=== PATIENT | female | born 1970 | race Caucasian/White ===

== ENCOUNTER 2017-11-22 22:45 | Inpatient (IN) ==
[2017-11-23] MEDS ORDERED: GI Cocktail 40 ML EACH PO ONE (01:08)
--- NOTE | 2017-11-23 01:42 | Internal Med History&Physical ---
Date of Encounter: 11/23/17 Time of Encounter: 01:35 Internal Medicine - H&P: HPI Chief complaint: abdominal cramping Admitted From: Hospital to Hospital Transfer Plans for Post Hospital Care: Home History of present illness: Ms. Rome is a 47 year old female who has a history of IBS-C, hypertension, recently diagnosed diabetes, asthma and anxiety disorder who is transferred here from [facility] she presented with a chief complaint of abdominal pain for 1 week. Patient states that since Saturday of last week she has been experiencing abdominal cramping predominantly epigastric associated with diarrhea of semisolid stool and nausea. She states that she has been unable to tolerate by mouth due to her symptoms and snacking on does bread alone. She states that she has become significantly weak thinned and due to the ongoing abdominal discomfort she decided to seek medical attention. He feels as though the pain was similar to when she had biliary colic. The color of her diarrheic depositions have varied from light yellow to brown to dark with a grainy consistency. She denies blood or mucus. She denies fever or chills, no chest pain, dyspnea or diaphoresis. She chronically has been on laxatives in the past in addition to linaclotide which she takes for her IBS-C but states that since the symptoms started she has not been taking them. She denies any acute ingestions or recent travels. Her last episode of diarrhea was yesterday earlier in the afternoon before she sought medical attention. At this time her chief complaint is abdominal cramping. The emergency room she was seen to have normal vital signs and lab work depicted bubble white count of 15.9, hemoglobin of 15.5, platelets of 274, sodium of 132, potassium of 3.4 and chloride of 95. Serum creatinine was 0.83 and be on a 5.5 with a lactic acid level of 1.1, lipase of 102. Her LFTs and serum troponin were within normal limits. Urinalysis was unremarkable. CT abdomen and pelvis was done with the impression of inflammatory changes surrounding the majority of the colon from the cecum through the proximal sigmoid colon which is consistent with an infectious or inflammatory colitis. At this time she states that her abdominal pain has received due to a narcotic medication she received and just wants to rest. She does not feel the urge to have diarrhea at this time. Past Med Surg Social Fam HX - Past Medical History Medical history: asthma, diabetes, hypertension Additional medical history: DDD,IBS, Reflux Psychiatric history: anxiety, depression, panic disorder, PTSD - Past Surgical History Surgical History: appendectomy, , cholecystectomy, hysterectomy - Social History Smoking Status: Current every day smoker Packs per day: 1 Pack Smokeless Tobacco Status: No Alcohol use: none Drug use: none - Family History Father Adopted: [place]: Abel Potter Age: 74 Family Member Ethnicity: Non- Living Status: Still Living Hx Family Cardiac Disorders: Yes Hx Family Cancer: Yes (Thyroid) Hx Family GI Disorders: No Hx Family Genitourinary Disorders: No Hx Family Endocrine Disorder: No Hx Family Musculoskeletal Disorders: No Hx Family Neuromuscular Disorders: No Hx Family Neurologic Disorders: No Hx Family HEENT Disorders: No Hx Family Autoimmune Disorders: No Hx Family Reproductive Disorders: No Hx Family Psychosocial Disorders: No Hx Family Medical Disorders: No Internal Medicine - H&P: Meds 3 Allergy/AdvReac Type Severity Reaction Status Date / Time lisinopril Allergy Swelling Verified 11/23/17 01:22 of Lip/Tongue/Throat acetaminophen [From Vicodin] AdvReac Swelling Verified 11/23/17 01:23 of the Eye hydrocodone [From Vicodin] AdvReac Swelling Verified 11/23/17 01:23 of the Eye All Systems PM: A 10-system review of systems was performed and is negative for pertinent findings except as documented above in the HPI. - Constitutional Vitals: Temp Pulse Resp BP Pulse Ox 97.8 F 68 19 97/68 93 11/23/17 01:05 11/23/17 01:05 11/23/17 01:05 11/23/17 01:05 11/23/17 01:05 Exam: Vitals: Reviewed General: Elderly white female sitting comfortably in bed in no acute distress Skin: Reduced skin turgor HEENT: Dry oral mucous membranes. No conjunctivae pallor. Neck: No lymphadenopathy. No JVD. Chest: Normal thoracic expansion. Normal breath sounds. Clear to auscultation. Heart: Normal S1 & S2; rhythmic. No rubs or murmurs. Abdomen: Non-distended, soft and nontender to palpation diffusely and predominantly in the epigastrium with no peritoneal reaction. Increased bowel sounds. Extremities: No clubbing, cyanosis or edema. No calf tenderness. Normal distal pulses. Neurological: Awake, alert and oriented to person, place and time. No focal deficits. Psych: Affect appropriate and coherent speech - Assessment and plan (1) Diarrhea Current Visit: Yes Status: Acute Assessment and plan: Unclear etiology as it potentially could be infectious however persisting over 1 week without resolution and without ingesting anything out of the ordinary or traveling to exotic places makes one equally consider a non-infectious etiology such as medication induced or a flare of IBS now having diarrhea. She has not taken any recent antibiotics or been hospitalized to be concerned for C.diff although there are also community acquired cases. The depositions she showed me via pictures on phone were not watery in consistency as would typically be seen however. -For now will place on IVF and empiric ciprofloxacin and metronidazole. -Obtain stool culture for assessment. Qualifiers: Diarrhea type: presumed infectious Qualified Code(s): R19.7 - Diarrhea, unspecified (2) Abdominal pain Current Visit: Yes Status: Acute Assessment and plan: Associated with the inflammatory signs of colitis. -Will treat with abx as above and provide PPI/GI cocktail for symptomatic relief. -Dicyclomine should be helpful for the cramping as well. Qualifiers: Abdominal location: generalized Qualified Code(s): R10.84 - Generalized abdominal pain (3) IBS (irritable bowel syndrome) Current Visit: Yes Status: Chronic Assessment and plan: Diagnosed "many years ago" as per the patient. She had a colonoscopy and endoscopy done last year which was grossly unremarkable except for a few polyps that were benign. -Place polyethylene glycol and linaclotide home medications on hold for now so as not to exacerbate her condition -She will need GI follow-up Qualifiers: Irritable bowel syndrome type: unspecified Qualified Code(s): K58.9 - Irritable bowel syndrome without diarrhea (4) Hypertension Current Visit: Yes Status: Chronic Assessment and plan: Resume home medication metoprolol and amlodipine however at a lower dose for now Qualifiers: Hypertension type: essential hypertension Qualified Code(s): I10 - Essential (primary) hypertension (5) Asthma Current Visit: Yes Status: Chronic Assessment and plan: Mild intermittent. We will place on albuterol when necessary Qualifiers: Asthma severity: mild Asthma persistence: intermittent Asthma complication type: uncomplicated Qualified Code(s): J45.20 - Mild intermittent asthma, uncomplicated (6) Diabetes Current Visit: Yes Status: Chronic Assessment and plan: Recent diagnosis and yet to start on therapy by her primary care physician. 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 We will check lamotrigine level just in case given the high dose she is on and resume medications accordingly. (8) DVT prophylaxis Current Visit: Yes Status: Acute Assessment and plan: Subcutaneous heparin ordered. - Time Spent With Patient Total time spent is greater than 50% in coordination of care (as documented) at patient's floor/unit and/or counseling patient: Greater than 35 minutes
[2017-11-23] MEDS ORDERED: Ondansetron ODT 4 MG TAB.RAPDIS SL PRN (01:44)
[2017-11-23] MEDS ORDERED: Albuterol 2.5 MG/3 ML NEBULIZER IH PRN (01:44)
[2017-11-23] MEDS: Ringers Solution, Lactated 1,000 ML IVC SCH ×4 (02:08→23:59)
[2017-11-23 04:42] LABS: Basophils % 0.2 %; Eosinophils # 0.2 K/mcL (0.0-0.6); Eosinophils % 1.2 %; Hematocrit 44.5 % (35.3-44.9); Hemoglobin 14.8 g/dL (11.5-15.4); Immature Granulocytes % 0.4 % (0-4); Lymphocytes # 2.3 K/mcL (0.6-4.6); Lymphocytes % 17.8 %; Mean Corpuscular HGB Conc 33.3 g/dL (31.6-35.5); Mean Corpuscular Volume 87.3 fL (83.0-100.0); Mean Platelet Volume 9.2 fL (9.4-12.4); Monocytes # 1.1 K/mcL (0.0-1.3); Monocytes % 8.3 %; Neutrophils # 9.4 K/mcL (1.6-8.9); Platelet Count 270 K/mcL (140-400); Red Cell Distribution Width 13.3 % (11.5-14.5); Segmented Neutrophils % 72.1 %
[2017-11-23 04:57] LABS: Alanine Aminotransferase 8 Units/L (7-52); Albumin 3.8 g/dL (3.5-5.7); Albumin/Globulin Ratio 1.4 (1.1-2.2); Alkaline Phosphatase 79 Units/L (34-104); Aspartate Amino Transferase 17 Units/L (13-39); BUN/Creatinine Ratio 7 (6-26); Bilirubin,Direct 0.1 mg/dL (0.0-0.2); Bilirubin,Indirect 0.4 mg/dL (0.0-1.2); Bilirubin,Total 0.5 mg/dL (0.3-1.0); Blood Urea Nitrogen 5 mg/dL (6-20); Calcium 8.8 mg/dL (8.6-10.3); Carbon Dioxide 23 mEq/L (23-29); Chloride 102 mEq/L (98-107); Globulin 2.7 g/dL (2.4-3.5); Glucose 79 mg/dL (70-105); Osmolality,Calculated 274 (280-300); Potassium 3.3 mEq/L (3.5-5.1); Sodium 134 mEq/L (136-145); Total Protein 6.5 g/dL (6.4-8.9); eGFR For Non-African Americans > 60 (> 60)
[2017-11-23] MEDS ORDERED: Potassium Chloride Elixir 20 MEQ/15 ML UDC PO ONE (05:31)
[2017-11-23] MEDS: *HR* Heparin 5,000 UNIT/ML VIAL SQ SCH ×3 (05:54→21:03)
[2017-11-23] MEDS: clonazePAM 0.5 MG TABLET PO PRN ×2 (07:21→21:08)
[2017-11-23] MEDS: MetroNIDAZOLE 500 MG/100 ML 500 MG/100 ML BAG IVPB SCH ×3 (07:22→23:59)
[2017-11-23] MEDS: lamoTRIgine 100 MG TABLET PO SCH ×2 (07:26→21:02)
[2017-11-23] MEDS: Fluticasone Propionate Nasal 50 MCG/SPRAY BOTTLE NS SCH (07:26)
[2017-11-23] MEDS: Pantoprazole 40 MG VIAL IVP SCH (07:27)
[2017-11-23] MEDS: BuPROPion XL (24 HR) 150 MG TABLET PO SCH (07:27)
[2017-11-23] MEDS ORDERED: amLODIPine 5 MG TABLET PO SCH ×2 (09:00)
[2017-11-23 10:12] LABS: Basophils % 0.2 %; Eosinophils # 0.1 K/mcL (0.0-0.6); Eosinophils % 1.1 %; Hematocrit 44.4 % (35.3-44.9); Hemoglobin 15.2 g/dL (11.5-15.4); Immature Granulocytes % 0.5 % (0-4); Mean Corpuscular HGB Conc 34.2 g/dL (31.6-35.5); Mean Corpuscular Hemoglobin 30.1 pg (28.0-33.3); Mean Corpuscular Volume 87.9 fL (83.0-100.0); Mean Platelet Volume 9.1 fL (9.4-12.4); Monocytes # 1.2 K/mcL (0.0-1.3); Monocytes % 8.9 %; Neutrophils # 9.6 K/mcL (1.6-8.9); Platelet Count 258 K/mcL (140-400); Red Blood Count 5.05 M/mcL (3.82-4.97); Red Cell Distribution Width 13.3 % (11.5-14.5); Segmented Neutrophils % 74.3 %
[2017-11-23 10:39] LABS: Potassium 4.6 mEq/L (3.5-5.1)
[2017-11-23 10:40] LABS: BUN/Creatinine Ratio 7 (6-26); Blood Urea Nitrogen 5 mg/dL (6-20); Calcium 8.8 mg/dL (8.6-10.3); Carbon Dioxide 24 mEq/L (23-29); Chloride 106 mEq/L (98-107); Glucose 80 mg/dL (70-105); Osmolality,Calculated 276 (280-300); Sodium 135 mEq/L (136-145); eGFR For Non-African Americans > 60 (> 60)
--- NOTE | 2017-11-23 10:55 | Internal Med Progress Note ---
Hospitalist Progress Note - Encounter Date of Encounter: 11/23/17 Time of Encounter: 10:53 - Subjective Interval History: Still complaining of upper abdominal pain especially epigastrium. He is still running watery diarrhea. Denies nausea vomiting. Review the lab. Patient denies fever chills headache dizziness chest pain shortness of breath urinary complaint - Exam Vitals: Temp Pulse Resp BP Pulse Ox 98.0 F 82 14 105/73 91 11/23/17 06:57 11/23/17 06:57 11/23/17 06:57 11/23/17 06:57 11/23/17 06:57 Exam: General appearance: No acute distress, A&O X 3 Head exam: Atraumatic Eye exam: EOMI, PERRLA Neck nontender, supple Respiratory exam: Clear to auscultation bilaterally Cardiovascular exam: Regular rate and rhythm, no systolic murmur Abdominal exam: Soft, epigastric tenderness, nondistended, positive bowel sounds Extremities exam: No calf tenderness, no pedal edema Present: Neurological exam: Alert, awake, oriented 3, CN II-XII intact, no focal deficits. No facial droop. Normal speech. Normal gait. - Assessment and Plan (1) Diarrhea Current Visit: Yes Status: Acute Assessment and Plan: Unclear etiology . Could be infectious versus IBS flareup. Supportive treatment IV fluid along with empiric antibiotics Cipro and Flagyl was started by admitting physician. The stool study ordered. (2) Abdominal pain Current Visit: Yes Status: Acute Assessment and Plan: Complaining of epigastric pain with tenderness. CT abdomen will be ordered. Will also order lipase. Continue PPI GI cocktail. (3) Hypertension Current Visit: Yes Status: Chronic Assessment and Plan: Low blood pressure at this time therefore hold amlodipine and a started low dose of beta juancarlos. Close monitoring of BP and if it is a still low then will hold the beta juancarlos as well. Continue IV fluid with a strict I&O's. (4) IBS (irritable bowel syndrome) Current Visit: Yes Status: Chronic Assessment and Plan: Diagnosed "many years ago" as per the patient. She had a colonoscopy and endoscopy done last year which was grossly unremarkable except for a few polyps that were benign. Will consult GI if needed. (5) Asthma Current Visit: Yes Status: Chronic Assessment and Plan: Mild intermittent. Stable. Albuterol as needed (6) Diabetes Current Visit: Yes Status: Chronic Assessment and Plan: Recent diagnosis and yet to start on therapy by her primary care physician. Blood glucose normal continue Accu-Chek. If blood glucoses stay within normal limit than patient will follow with his physician on OPD basis (7) Mood disorder Current Visit: Yes Status: Chronic Assessment and Plan: Stable. Resume home medicine (8) DVT prophylaxis Current Visit: Yes Status: Acute Assessment and Plan: Subcutaneous heparin ordered. - Time Spent with Patient Total time spent is greater than 50% in coordination of care (as documented) at patient's floor/unit and/or counseling patient: Internal Medicine: Result - Labs CBC & Chem 7: 11/23/17 09:48 11/23/17 09:48 Labs: Short CBC 11/23/17 11/23/17 Range/Units 03:58 09:48 WBC 13.1 H 13.0 H (4.3-11.1) K/mcL Hgb 14.8 15.2 (11.5-15.4) g/dL Hct 44.5 44.4 (35.3-44.9) % Plt Count 270 258 (140-400) K/mcL Neutrophils # 9.4 H 9.6 H (1.6-8.9) K/mcL BMP 11/23/17 11/23/17 03:58 09:48 Sodium 134 L 135 L Potassium 3.3 L 4.6 D Chloride 102 106 Carbon Dioxide 23 24 BUN 5 L 5 L Creatinine 0.73 0.71 Glucose 79 80 Calcium 8.8 8.8 Liver Function 11/23/17 Range/Units 03:58 Total Bilirubin 0.5 (0.3-1.0) mg/dL Direct Bilirubin 0.1 (0.0-0.2) mg/dL AST 17 (13-39) Units/L ALT 8 (7-52) Units/L Alkaline Phosphatase 79 (34-104) Units/L Albumin 3.8 (3.5-5.7) g/dL Consult Discharge Plan - Plan Referrals: Petrona Smith [Primary Care Provider] - (1) Diarrhea Qualifiers: Diarrhea type: presumed infectious Qualified Code(s): R19.7 - Diarrhea, unspecified (2) Abdominal pain Qualifiers: Abdominal location: generalized Qualified Code(s): R10.84 - Generalized abdominal pain (3) Hypertension Qualifiers: Hypertension type: essential hypertension Qualified Code(s): I10 - Essential (primary) hypertension (4) IBS (irritable bowel syndrome) Qualifiers: Irritable bowel syndrome type: unspecified Qualified Code(s): K58.9 - Irritable bowel syndrome without diarrhea (5) Asthma Qualifiers: Asthma severity: mild Asthma persistence: intermittent Asthma complication type: uncomplicated Qualified Code(s): J45.20 - Mild intermittent asthma, uncomplicated (6) Diabetes Qualifiers: Diabetes mellitus type: type 2 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
[2017-11-23] MEDS ORDERED: Isovue-370 500 ML INFUS..BTL IV ONE (11:02)
[2017-11-23] MEDS: Acetaminophen 325 MG TABLET PO PRN ×2 (11:08→22:06)
[2017-11-23 11:45] LABS: Amylase 11 Units/L (29-103); Lipase 27 Units/L (11-82)
[2017-11-23] MEDS: Lactobacillus 1 EACH CAP.SPRINK PO SCH ×2 (11:48→21:03)
[2017-11-23 12:43] LABS: Adenovirus F 40/41 PCR Not detected (Not detect); Astrovirus PCR Not detected (Not detect); C.difficile Toxin A/B by PCR See reflex test (Not detect); Campylobacter by PCR Not detected (Not detect); Cryptosporidium by PCR Not detected (Not detect); Cyclospora cayetanensis PCR Not detected (Not detect); E. coli O157 by PCR Not detected (Not detect); Entamoeba histolytica PCR Not detected (Not detect); Enteroaggregative E.coli(EAEC) Not detected (Not detect); Enteropathogenic E.coli(EPEC) Not detected (Not detect); Enterotoxigenic E.coli (ETEC) Not detected (Not detect); Giardia lamblia PCR Not detected (Not detect); Norovirus GI/GII PCR Not detected (Not detect); Plesiomonas shigelloides PCR Not detected (Not detect); Rotavirus A PCR Not detected (Not detect); Salmonella PCR Not detected (Not detect); Sapovirus PCR Not detected (Not detect); Shig/EnteroinvasiveE coli EIEC Not detected (Not detect); Shigalike tox-prod E coli STEC Not detected (Not detect); Vibrio PCR Not detected (Not detect); Vibrio cholerae PCR Not detected (Not detect); Yersinia enterocolitica PCR Not detected (Not detect)
--- NOTE | 2017-11-23 15:40 | Event Note ---
Date of Encounter: 11/23/17 Time of Encounter: 15:38 Stool is study positive for C. difficile and stool occult. Ciprofloxacin discontinued but continue IV Flagyl as patient had nausea but will change to oral once tolerate by mouth. Monitor CBC. CT abdomen ordered but not done yet.
[2017-11-23] MEDS: Beclomethasone 40mcg MDI IH SCH ×2 (16:22→20:11)
[2017-11-23] MEDS ORDERED: Isovue-370 500 ML INFUS..BTL PO ONE (16:29)
--- NOTE | 2017-11-23 20:22 | General Surgery Consult Note ---
Date of Encounter: 11/23/17 Time of Encounter: 20:19 Assessment and Plan (1) Clostridium difficile colitis Current Visit: Yes Status: Acute 47F with significant colitis 2/2 c. diff NPO IVF abx: flagyl, PO vanc; if patient worsens can give vanc enemas if patient does not improve despite management, then jose grijalva plan for surgery in that instance will cont to follow History of Present Illness Consult date: 11/23/17 Reason for consult: abdominal pain History of present illness: 47F h/o IBS who presents with one week of worsening abdominal pain. There was no identifiable causative factor. She does not report any recent antibiotic use. She does reports increasing reports of diarrhea. She had a recent test that was positive for C. diff. A CT scan was obtained which demonstrated thickening throughout the ascending and transverse colon up to the splenic flexure. Surgery was consulted for management recommendations. Past Med Surg Social Fam HX - Past Medical History Medical history: asthma, diabetes, hypertension Additional medical history: DDD,IBS, Reflux Psychiatric history: anxiety, depression, panic disorder, PTSD - Past Surgical History Surgical History: appendectomy, , cholecystectomy, hysterectomy - Social History Smoking Status: Current every day smoker Packs per day: 1 Pack Smokeless Tobacco Status: No Alcohol use: none Drug use: none - Family History Father Adopted: [place]: Abel Potter Age: 74 Family Member Ethnicity: Non- Living Status: Still Living Hx Family Cardiac Disorders: Yes Hx Family Cancer: Yes (Thyroid) Hx Family GI Disorders: No Hx Family Genitourinary Disorders: No Hx Family Endocrine Disorder: No Hx Family Musculoskeletal Disorders: No Hx Family Neuromuscular Disorders: No Hx Family Neurologic Disorders: No Hx Family HEENT Disorders: No Hx Family Autoimmune Disorders: No Hx Family Reproductive Disorders: No Hx Family Psychosocial Disorders: No Hx Family Medical Disorders: No Medications and Allergies Amlodipine Besylate 10 mg PO DAILY 11/23/17 [History] BuPROPion XL (24 HR) [Wellbutrin XL] 300 mg PO DAILY 11/23/17 [History] Ciclesonide [Alvesco] 1 puff IH BID 11/23/17 [History] Dicyclomine [Bentyl] 10 mg PO QID 11/23/17 [History] Linaclotide [Linzess] 290 mcg PO DAILY 11/23/17 [History] Metoprolol [Lopressor] 25 mg PO BID 11/23/17 [History] Mometasone Furoate [Nasonex] 1 - 2 spr NS DAILY 11/23/17 [History] Pravastatin Sodium [Pravachol] 40 mg PO HS 11/23/17 [History] Sertraline [Zoloft] 200 mg PO QAM 11/23/17 [History] clonazePAM [Klonopin] 0.5 mg PO BID 11/23/17 [History] lamoTRIgine [Lamictal] 200 mg PO BID 11/23/17 [History] raNITIdine HCl [Zantac] 150 mg PO BID 11/23/17 [History] 3 Allergy/AdvReac Type Severity Reaction Status Date / Time lisinopril Allergy Swelling Verified 11/23/17 10:51 of Lip/Tongue/Throat acetaminophen [From Vicodin] AdvReac Swelling Verified 11/23/17 10:51 of the Eye hydrocodone [From Vicodin] AdvReac Swelling Verified 11/23/17 10:51 of the Eye Review of Systems All systems PM: The remainder of the systems were reviewed and are negative General Surgery Exam Initial Vital Signs Temp Pulse Resp BP Pulse Ox 97.8 F 68 19 97/68 93 11/23/17 01:05 11/23/17 01:05 11/23/17 01:05 11/23/17 01:05 11/23/17 01:05 - General physical appearance no distress - Eyes normal ocular movement - ENT normocephalic - Neck no lymphadectomy - Respiratory normal expansion, normal respiratory effort - Cardiovascular Cardiovascular exam: Present: RRR - Abdomen Abdomen general surgery: Present: soft, distended (but compressible), tender ( non peritoneal; ) - Integumentary Integumentary general surgery: Present: warm and dry - Neurologic Present: CN 2-12 grossly intact - Musculoskeletal Present: normal posture - Psychiatric Psychiatric general surgery: Present: A&Ox3 Exam Initial Vital Signs Temp Pulse Resp BP Pulse Ox 97.8 F 68 19 97/68 93 11/23/17 01:05 11/23/17 01:05 11/23/17 01:05 11/23/17 01:05 11/23/17 01:05 Results - Labs 11/23/17 09:48 11/23/17 09:48 Abnormal lab results WBC 13.0 K/mcL (4.3-11.1) H 11/23/17 09:48 RBC 5.05 M/mcL (3.82-4.97) H 11/23/17 09:48 MPV 9.1 fL (9.4-12.4) L 11/23/17 09:48 Neutrophils # 9.6 K/mcL (1.6-8.9) H 11/23/17 09:48 Sodium 135 mEq/L (136-145) L 11/23/17 09:48 BUN 5 mg/dL (6-20) L 11/23/17 09:48 Calculated Osmolality 276 (280-300) L 11/23/17 09:48 Amylase 11 Units/L (29-103) L 11/23/17 09:48 Stool Occult Blood Positive (Negative) A 11/23/17 10:51 Stl C. diff Tox B Gene Positive (Negative) A 11/23/17 10:51 Stl C. diff Tox A/B PCR See reflex test (Not detect) A 11/23/17 10:51 Diabetes panel 11/23/17 11/23/17 Range/Units 03:58 09:48 Sodium 134 L 135 L (136-145) mEq/L Potassium 3.3 L 4.6 D (3.5-5.1) mEq/L Chloride 102 106 (98-107) mEq/L Carbon Dioxide 23 24 (23-29) mEq/L BUN 5 L 5 L (6-20) mg/dL Creatinine 0.73 0.71 (0.60-1.20) mg/dL Glucose 79 80 (70-105) mg/dL Calcium 8.8 8.8 (8.6-10.3) mg/dL AST 17 (13-39) Units/L ALT 8 (7-52) Units/L Alkaline Phosphatase 79 (34-104) Units/L Albumin 3.8 (3.5-5.7) g/dL Calcium panel 11/23/17 11/23/17 Range/Units 03:58 09:48 Calcium 8.8 8.8 (8.6-10.3) mg/dL Albumin 3.8 (3.5-5.7) g/dL Pituitary panel 11/23/17 11/23/17 Range/Units 03:58 09:48 Sodium 134 L 135 L (136-145) mEq/L Potassium 3.3 L 4.6 D (3.5-5.1) mEq/L Chloride 102 106 (98-107) mEq/L Carbon Dioxide 23 24 (23-29) mEq/L BUN 5 L 5 L (6-20) mg/dL Creatinine 0.73 0.71 (0.60-1.20) mg/dL Glucose 79 80 (70-105) mg/dL Calcium 8.8 8.8 (8.6-10.3) mg/dL Adrenal panel 11/23/17 11/23/17 Range/Units 03:58 09:48 Sodium 134 L 135 L (136-145) mEq/L Potassium 3.3 L 4.6 D (3.5-5.1) mEq/L Chloride 102 106 (98-107) mEq/L Carbon Dioxide 23 24 (23-29) mEq/L BUN 5 L 5 L (6-20) mg/dL Creatinine 0.73 0.71 (0.60-1.20) mg/dL Glucose 79 80 (70-105) mg/dL Calcium 8.8 8.8 (8.6-10.3) mg/dL Total Bilirubin 0.5 (0.3-1.0) mg/dL AST 17 (13-39) Units/L ALT 8 (7-52) Units/L Alkaline Phosphatase 79 (34-104) Units/L Albumin 3.8 (3.5-5.7) g/dL All other labs normal. - Imaging CT scan - abdomen: report reviewed, image reviewed CT scan - pelvis: report reviewed, image reviewed Consult Discharge Plan - Plan Referrals: Petrona Smith [Primary Care Provider] -
[2017-11-24] MEDS: *HR* Heparin 5,000 UNIT/ML VIAL SQ SCH ×3 (05:19→21:04)
[2017-11-24 05:25] LABS: Basophils % 0.3 %; Eosinophils # 0.2 K/mcL (0.0-0.6); Eosinophils % 1.4 %; Hematocrit 44.9 % (35.3-44.9); Hemoglobin 14.8 g/dL (11.5-15.4); Immature Granulocytes % 0.3 % (0-4); Lymphocytes # 3.4 K/mcL (0.6-4.6); Mean Corpuscular Hemoglobin 29.1 pg (28.0-33.3); Mean Corpuscular Volume 88.2 fL (83.0-100.0); Mean Platelet Volume 9.2 fL (9.4-12.4); Monocytes # 0.9 K/mcL (0.0-1.3); Monocytes % 7.4 %; Neutrophils # 7.2 K/mcL (1.6-8.9); Platelet Count 300 K/mcL (140-400); Red Blood Count 5.09 M/mcL (3.82-4.97); Red Cell Distribution Width 13.6 % (11.5-14.5); Segmented Neutrophils % 61.6 %
[2017-11-24 05:43] LABS: BUN/Creatinine Ratio 4 (6-26); Blood Urea Nitrogen 3 mg/dL (6-20); Carbon Dioxide 27 mEq/L (23-29); Chloride 107 mEq/L (98-107); Glucose 83 mg/dL (70-105); Osmolality,Calculated 284 (280-300); Potassium 3.5 mEq/L (3.5-5.1); Sodium 139 mEq/L (136-145); eGFR For Non-African Americans > 60 (> 60)
[2017-11-24] MEDS: MetroNIDAZOLE 500 MG/100 ML 500 MG/100 ML BAG IVPB SCH ×3 (07:15→23:00)
[2017-11-24] MEDS: Fluticasone Propionate Nasal 50 MCG/SPRAY BOTTLE NS SCH (07:17)
[2017-11-24] MEDS: lamoTRIgine 100 MG TABLET PO SCH ×2 (07:17→20:59)
[2017-11-24] MEDS: Lactobacillus 1 EACH CAP.SPRINK PO SCH ×2 (07:17→20:59)
[2017-11-24] MEDS: Pantoprazole 40 MG VIAL IVP SCH (07:18)
[2017-11-24] MEDS: clonazePAM 0.5 MG TABLET PO PRN (07:19)
[2017-11-24] MEDS: BuPROPion XL (24 HR) 150 MG TABLET PO SCH (07:19)
[2017-11-24] MEDS: Acetaminophen 325 MG TABLET PO PRN ×2 (07:20→16:24)
[2017-11-24] MEDS: Beclomethasone 40mcg MDI IH SCH ×2 (08:11→19:59)
[2017-11-24] MEDS: Vancomycin Oral Soln 125 MG/2.5 ML UDC PO SCH ×4 (08:21→21:00)
--- NOTE | 2017-11-24 11:21 | General Surgery Progress Note ---
Date of Encounter: 11/24/17 Time of Encounter: 11:19 - Assessment and Plan (1) Clostridium difficile colitis Current Visit: Yes Status: Acute 47F with significant colitis 2/2 c. diff; improved clinically NPO cont IVF cont flagyl, vanc activity as tolerated likely restart diet when pain is resolved and WBC wnl surgery will cont to follow Subjective Patient reports: no new complaints, feels better, pain is less Objective Vital Signs - Last 8 Hours Temp Pulse Resp BP Pulse Ox 11/24/17 11:13 97.9 F 64 16 106/70 95 11/24/17 07:19 97.9 F 74 16 114/75 92 11/24/17 04:30 97.8 F 79 16 115/80 92 Intake and Output 11/23/17 11/24/17 11/24/17 23:59 07:59 15:59 Intake Total 1940 / 1940 700 / 700 100 / 100 Output Total 0 / 0 Balance 1940 / 1940 700 / 700 100 / 100 Intake: IV Fluids 1100 / 1100 700 / 700 100 / 100 Lactated Ringers 1,000 ML @ 100 1000 / 1000 600 / 600 mls/hr IVC .Q10H [facility] Rx#: [id number] Flagyl Premix 500 MG/100 ML 500 100 / 100 100 / 100 100 / 100 mg In 100 ml @ 100 mls/hr IVPB Q8HR [facility] Rx#:[id number] Oral 840 / 840 0 / 0 0 / 0 Output: Urine 0 / 0 Other: Meal Dinner NPO BREAKFAST Stool Size Moderate Stool Consistency loose liquid Stool Color Brown # Voids 2 1 # Bowel Movements 1 Weight 73.1 kg Blood Glucose* 82 81 Patient Weight 11/24/17 23:59 Weight 73.1 kg - General physical appearance no distress - Cardiovascular Cardiovascular exam: Present: RRR - Abdomen Abdomen: Present: soft, distended (less distended than yesterday), tender - Neurologic CN 2-12 grossly intact - Labs 11/24/17 04:47 11/24/17 04:47 Diabetes panel 11/23/17 11/24/17 Range/Units 09:48 04:47 Sodium 135 L 139 (136-145) mEq/L Potassium 4.6 D 3.5 (3.5-5.1) mEq/L Chloride 106 107 (98-107) mEq/L Carbon Dioxide 24 27 (23-29) mEq/L BUN 5 L 3 L (6-20) mg/dL Creatinine 0.71 0.68 (0.60-1.20) mg/dL Glucose 80 83 (70-105) mg/dL Calcium 8.8 9.0 (8.6-10.3) mg/dL Calcium panel 11/23/17 11/24/17 Range/Units 09:48 04:47 Calcium 8.8 9.0 (8.6-10.3) mg/dL Pituitary panel 11/23/17 11/24/17 Range/Units 09:48 04:47 Sodium 135 L 139 (136-145) mEq/L Potassium 4.6 D 3.5 (3.5-5.1) mEq/L Chloride 106 107 (98-107) mEq/L Carbon Dioxide 24 27 (23-29) mEq/L BUN 5 L 3 L (6-20) mg/dL Creatinine 0.71 0.68 (0.60-1.20) mg/dL Glucose 80 83 (70-105) mg/dL Calcium 8.8 9.0 (8.6-10.3) mg/dL Adrenal panel 11/23/17 11/24/17 Range/Units 09:48 04:47 Sodium 135 L 139 (136-145) mEq/L Potassium 4.6 D 3.5 (3.5-5.1) mEq/L Chloride 106 107 (98-107) mEq/L Carbon Dioxide 24 27 (23-29) mEq/L BUN 5 L 3 L (6-20) mg/dL Creatinine 0.71 0.68 (0.60-1.20) mg/dL Glucose 80 83 (70-105) mg/dL Calcium 8.8 9.0 (8.6-10.3) mg/dL Consult Discharge Plan - Plan Referrals: Petrona Smith [Primary Care Provider] -
[2017-11-24] MEDS: Ringers Solution, Lactated 1,000 ML IVC SCH (11:32)
--- NOTE | 2017-11-24 11:38 | Internal Med Progress Note ---
Hospitalist Progress Note - Encounter Date of Encounter: 11/24/17 Time of Encounter: 08:30 - Subjective Interval History: is reporting that she is feeling muuch better but still has diarrhea. 3 episodes last night one episode ythis morning. denies abdominal pain, hematochezia or melena. is unsure of how she developed this infection. denies recent travel, sick contatcs, or Abx use lives alone. denies fever, chills, CP, SOB, palpitations - Exam Vitals: Temp Pulse Resp BP Pulse Ox 97.9 F 64 16 106/70 95 11/24/17 11:13 11/24/17 11:13 11/24/17 11:13 11/24/17 11:13 11/24/17 11:13 Exam: General: Patient is alert, oriented, no acute distress, Head: atraumatic, normocephalic, Eye: normal appearance, PERRL, no scleral icterus, no conjunctival injection ENT: mucous membranes moist, normal external ear exam Neck: normal inspection, trachea midline, full ROM, no carotid bruits Chest: normal inspection, symmetric chest rise Respiratory: Good respiratory effort. Bilateral breath sounds are clear without wheezing, crackles, or rhonchi. Cardiovascular: Regular rate and rhythm. s1 and s2 No clicks, rubs, gallops, murmors. Abdomen: BSve, mildly tender in all quadrants, no massses or organomegally found. musculoskeletal: Spontaneously moving all extremities. no edema, no calf tenderness Skin: warm, dry, intact. Neuro: Alert and oriented x4. Sensation light touch intact. Cranial nerves 2- 12 is intact. Not aphasic, Psych: Patient's affect is normal - Assessment and Plan (1) Clostridium difficile colitis Current Visit: Yes Status: Acute Assessment and Plan: community acquired CT abdomen and pelvis done shows thickening throughout the ascending and transverse colon up to the splenic flexure. on vancomycin Po and IV metronidazole surgery was consulted ID consult in the AM will continue contact and enteric precaution abdominal pain has nearly resolved white count is trending down will consider starting diet if #BM <3 per day remains NPO continue LR (2) IBS (irritable bowel syndrome) Current Visit: Yes Status: Chronic Assessment and Plan: Diagnosed "many years ago" as per the patient. She had a colonoscopy and endoscopy done last year which was grossly unremarkable except for a few polyps that were benign. continue home medications if not CI (3) Asthma Current Visit: Yes Status: Chronic Assessment and Plan: Mild intermittent. Stable. Albuterol as needed (4) Diabetes Current Visit: Yes Status: Chronic Assessment and Plan: Recent diagnosis and yet to start on therapy by her primary care physician. FS have been below 100. was counseled on ADA diet (5) DVT prophylaxis Current Visit: Yes Status: Acute Assessment and Plan: Subcutaneous heparin ordered. (6) Mood disorder Current Visit: Yes Status: Chronic Assessment and Plan: Stable. Resume home medicine DVT Prophylaxis: as above - Time Spent with Patient Total time spent is greater than 50% in coordination of care (as documented) at patient's floor/unit and/or counseling patient: 25 - 35 minutes Plan of Care Discussed with: patient Internal Medicine: Result - Labs CBC & Chem 7: 11/24/17 04:47 11/24/17 04:47 Labs: Short CBC 11/24/17 Range/Units 04:47 WBC 11.7 H (4.3-11.1) K/mcL Hgb 14.8 (11.5-15.4) g/dL Hct 44.9 (35.3-44.9) % Plt Count 300 (140-400) K/mcL Neutrophils # 7.2 (1.6-8.9) K/mcL BMP 11/24/17 04:47 Sodium 139 Potassium 3.5 Chloride 107 Carbon Dioxide 27 BUN 3 L Creatinine 0.68 Glucose 83 Calcium 9.0 - Impressions Impressions Abdomen/Pelvis CT 11/23/17 11:02 IMPRESSION: 1. Severe wall thickening of the cecum and ascending colon with adjacent inflammatory stranding. Moderate wall thickening of the transverse through descending colon is also seen. Abdominal ascites is present. Findings are most compatible with severe colitis. No pneumatosis. No free air. 2. Nonvisualization of the appendix. 3. Circumferential wall thickening of the bladder. Findings can be seen in setting of cystitis. Correlate with urinalysis. 4. Status post cholecystectomy and hysterectomy. D/ / 11/23/2017 16:30:51 Beth Mccracken MD / florentin Interpreting Provider: Beth Mccracken MD Consult Discharge Plan - Plan Referrals: Petrona Smith [Primary Care Provider] - (2) IBS (irritable bowel syndrome) Qualifiers: Irritable bowel syndrome type: unspecified Qualified Code(s): K58.9 - Irritable bowel syndrome without diarrhea (3) Asthma Qualifiers: Asthma severity: mild Asthma persistence: intermittent Asthma complication type: uncomplicated Qualified Code(s): J45.20 - Mild intermittent asthma, uncomplicated (4) Diabetes Qualifiers: Diabetes mellitus type: type 2 Diabetes mellitus intermediate school teacher insulin use: without intermediate school teacher use Diabetes mellitus complication status: without complication Qualified Code(s): E11.9 - Type 2 diabetes mellitus without complications
[2017-11-24] MEDS ORDERED: Ringers Solution, Lactated 1,000 ML IVC SCH (22:45)
[2017-11-25] MEDS: Acetaminophen 325 MG TABLET PO PRN (02:03)
[2017-11-25] MEDS: *HR* Heparin 5,000 UNIT/ML VIAL SQ SCH ×2 (06:00→14:01)
[2017-11-25 06:45] LABS: Basophils % 0.3 %; Eosinophils # 0.2 K/mcL (0.0-0.6); Eosinophils % 1.3 %; Hematocrit 39.7 % (35.3-44.9); Hemoglobin 13.4 g/dL (11.5-15.4); Immature Granulocytes % 0.4 % (0-4); Lymphocytes # 3.1 K/mcL (0.6-4.6); Lymphocytes % 27.2 %; Mean Corpuscular HGB Conc 33.8 g/dL (31.6-35.5); Mean Corpuscular Hemoglobin 30.2 pg (28.0-33.3); Mean Corpuscular Volume 89.4 fL (83.0-100.0); Mean Platelet Volume 9.2 fL (9.4-12.4); Monocytes # 0.9 K/mcL (0.0-1.3); Monocytes % 7.8 %; Neutrophils # 7.2 K/mcL (1.6-8.9); Platelet Count 252 K/mcL (140-400); Red Blood Count 4.44 M/mcL (3.82-4.97); Red Cell Distribution Width 13.6 % (11.5-14.5)
[2017-11-25 07:04] LABS: BUN/Creatinine Ratio 7 (6-26); Blood Urea Nitrogen 4 mg/dL (6-20); Calcium 8.3 mg/dL (8.6-10.3); Carbon Dioxide 23 mEq/L (23-29); Chloride 106 mEq/L (98-107); Glucose 69 mg/dL (70-105); Osmolality,Calculated 281 (280-300); Potassium 3.7 mEq/L (3.5-5.1); Sodium 138 mEq/L (136-145); eGFR For Non-African Americans > 60 (> 60)
[2017-11-25] MEDS ORDERED: D5% in Lactated Ringers 1,000 ML IVC SCH (07:30)
[2017-11-25] MEDS: MetroNIDAZOLE 500 MG/100 ML 500 MG/100 ML BAG IVPB SCH (09:17)
[2017-11-25] MEDS: lamoTRIgine 100 MG TABLET PO SCH (09:18)
[2017-11-25] MEDS: Lactobacillus 1 EACH CAP.SPRINK PO SCH (09:18)
[2017-11-25] MEDS: BuPROPion XL (24 HR) 150 MG TABLET PO SCH (09:18)
[2017-11-25] MEDS: Pantoprazole 40 MG VIAL IVP SCH (09:18)
[2017-11-25] MEDS: Vancomycin Oral Soln 125 MG/2.5 ML UDC PO SCH ×2 (09:18→14:01)
[2017-11-25] MEDS: Fluticasone Propionate Nasal 50 MCG/SPRAY BOTTLE NS SCH (09:19)
--- NOTE | 2017-11-25 10:09 | General Surgery Progress Note ---
Date of Encounter: 11/25/17 Time of Encounter: 10:07 - Assessment and Plan (1) Clostridium difficile colitis Current Visit: Yes Status: Acute 47F with significant colitis 2/2 c. diff; improved clinically CLD advance as tolerated cont abx until tolerating diet, then transition to PO no need for surgery general surgery will sign off at present: should clinical status decline or you have any questions or new concerns, please call back Subjective Patient reports: no new complaints, feels better, still having pain, pain is less, flatus, bowel movement Objective Vital Signs - Last 8 Hours Temp Pulse Resp BP Pulse Ox 11/25/17 07:03 97.9 F 61 16 105/69 94 11/25/17 04:44 97.7 F 65 16 99/62 94 Intake and Output 11/24/17 11/25/17 11/25/17 23:59 07:59 15:59 Intake Total 582 / 582 100 / 100 Output Total 0 / 0 Balance 582 / 582 100 / 100 Intake: IV Fluids 582 / 582 100 / 100 Lactated Ringers 1,000 ML @ 100 482 / 482 mls/hr IVC .Q10H [facility] Rx#: [id number] Flagyl Premix 500 MG/100 ML 500 100 / 100 100 / 100 mg In 100 ml @ 100 mls/hr IVPB Q8HR [facility] Rx#:[id number] Oral 0 / 0 0 / 0 Output: Urine 0 / 0 Other: Meal NPO Stool Size Moderate Stool Consistency liquid Stool Color Brown # Voids 2 # Bowel Movements 1 0 Weight 74 kg Blood Glucose* 81 - General physical appearance no distress - Respiratory normal expansion, normal respiratory effort - Cardiovascular Cardiovascular exam: Present: RRR - Abdomen Abdomen: Present: soft, tender (decreased, minimal distension) - Neurologic CN 2-12 grossly intact - Musculoskeletal normal posture - Labs 11/25/17 06:16 11/25/17 06:16 Diabetes panel 11/25/17 Range/Units 06:16 Sodium 138 (136-145) mEq/L Potassium 3.7 (3.5-5.1) mEq/L Chloride 106 (98-107) mEq/L Carbon Dioxide 23 (23-29) mEq/L BUN 4 L (6-20) mg/dL Creatinine 0.59 L (0.60-1.20) mg/dL Glucose 69 L (70-105) mg/dL Calcium 8.3 L (8.6-10.3) mg/dL Calcium panel 11/25/17 Range/Units 06:16 Calcium 8.3 L (8.6-10.3) mg/dL Pituitary panel 11/25/17 Range/Units 06:16 Sodium 138 (136-145) mEq/L Potassium 3.7 (3.5-5.1) mEq/L Chloride 106 (98-107) mEq/L Carbon Dioxide 23 (23-29) mEq/L BUN 4 L (6-20) mg/dL Creatinine 0.59 L (0.60-1.20) mg/dL Glucose 69 L (70-105) mg/dL Calcium 8.3 L (8.6-10.3) mg/dL Adrenal panel 11/25/17 Range/Units 06:16 Sodium 138 (136-145) mEq/L Potassium 3.7 (3.5-5.1) mEq/L Chloride 106 (98-107) mEq/L Carbon Dioxide 23 (23-29) mEq/L BUN 4 L (6-20) mg/dL Creatinine 0.59 L (0.60-1.20) mg/dL Glucose 69 L (70-105) mg/dL Calcium 8.3 L (8.6-10.3) mg/dL Consult Discharge Plan - Plan Referrals: Petrona Smith [Primary Care Provider] -
[2017-11-25 10:56] VITALS: BP 131/69
[2017-11-25] MEDS: Beclomethasone 40mcg MDI IH SCH (11:17)
--- NOTE | 2017-11-25 12:58 | Discharge Summary ---
- NOTES TO OUTPATIENT PROVIDER Notes to Outpatient Provider: follow electrolytes. was told to hold off of IBS- C medications as she is experiencing C.Dif . for PCP to restart Orders not resulted at time of discharge: Pending orders 11/23/17 03:58 Lamictal AM 0400 11/26/17 04:00 BMP [Basic Metabolic Panel] AM 0400 Complete Blood Count [HEME] AM 0400 Date of Encounter: 11/25/17 Time of Encounter: 12:54 - Discharge Diagnosis (1) Clostridium difficile colitis Priority: Primary Status: Acute (2) IBS (irritable bowel syndrome) Priority: Secondary Status: Chronic Qualifiers: Irritable bowel syndrome type: unspecified Qualified Code(s): K58.9 - Irritable bowel syndrome without diarrhea (3) Asthma Priority: Secondary Status: Chronic Qualifiers: Asthma severity: mild Asthma persistence: intermittent Asthma complication type: uncomplicated Qualified Code(s): J45.20 - Mild intermittent asthma, uncomplicated (4) Diabetes Priority: Secondary Status: Chronic Qualifiers: Diabetes mellitus type: type 2 Diabetes mellitus 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 Rome is a 47 year old female who has a history of IBS-C, hypertension, recently diagnosed diabetes, asthma and anxiety disorder who is transferred here from [facility] she presented with a chief complaint of abdominal pain for 1 week. The emergency room she was seen to have normal vital signs and lab work depicted bubble white count of 15.9, hemoglobin of 15.5, platelets of 274, sodium of 132, potassium of 3.4 and chloride of 95. Serum creatinine was 0.83 and be on a 5.5 with a lactic acid level of 1.1, lipase of 102. Her LFTs and serum troponin were within normal limits. Urinalysis was unremarkable. CT abdomen and pelvis was done with the impression of inflammatory changes surrounding the majority of the colon from the cecum through the proximal sigmoid colon which is consistent with an infectious or inflammatory colitis. surgery ad ID consulted and recommendation followed. she was started on PO vancomycin and her BM decreased to <3 per day. she tolerated PO diet and was cleared by ID for discharge. education about C.Dif colitis and importance of hand hygeine was performed. she was told to hold off of medications for IBS-C as it can cause further diarrhea and was told to follow up with PCP for restarting those medications. CT A/P IMPRESSION: 1. Severe wall thickening of the cecum and ascending colon with adjacent inflammatory stranding. Moderate wall thickening of the transverse through descending colon is also seen. Abdominal ascites is present. Findings are most compatible with severe colitis. No pneumatosis. No free air. 2. Nonvisualization of the appendix. 3. Circumferential wall thickening of the bladder. Findings can be seen in setting of cystitis. Correlate with urinalysis. 4. Status post cholecystectomy and hysterectomy. Discharge discussed with: patient, nurse - Time Spent with Patient Total time spent providing and/or coordinating discharge services: Less than 30 minutes - Discharge Medications Prescriptions: Lactobacillus [Culturelle] 1 each PO BID 9 Days #18 cap.sprink Vancomycin Oral Soln [Firvanq] 125 mg PO QID 9 Days #9 [facility] Home Medications: Amlodipine Besylate 10 mg PO DAILY 11/23/17 [History] BuPROPion XL (24 HR) [Wellbutrin Xl] 300 mg PO DAILY 11/23/17 [History] Ciclesonide [Alvesco] 1 puff IH BID 11/23/17 [History] Dicyclomine [Bentyl] 10 mg PO QID 11/23/17 [History] Linaclotide [Linzess] 290 mcg PO DAILY 11/23/17 [History] Metoprolol [Lopressor] 25 mg PO BID 11/23/17 [History] Mometasone Furoate [Nasonex] 1 - 2 spr NS DAILY 11/23/17 [History] Pravastatin Sodium [Pravachol] 40 mg PO HS 11/23/17 [History] Sertraline [Zoloft] 200 mg PO QAM 11/23/17 [History] clonazePAM [Klonopin] 0.5 mg PO BID 11/23/17 [History] lamoTRIgine [Lamictal] 200 mg PO BID 11/23/17 [History] raNITIdine HCl [Zantac] 150 mg PO BID 11/23/17 [History] Lactobacillus [Culturelle] 1 each PO BID 9 Days #18 cap.sprink 11/25/17 [Rx] Vancomycin Oral Soln [Firvanq] 125 mg PO QID 9 Days #9 udc 11/25/17 [Rx] Allergies/Adverse Reactions: 3 Allergy/AdvReac Type Severity Reaction Status Date / Time lisinopril Allergy Swelling Verified 11/23/17 10:51 of Lip/Tongue/Throat acetaminophen [From Vicodin] AdvReac Swelling Verified 11/23/17 10:51 of the Eye hydrocodone [From Vicodin] AdvReac Swelling Verified 11/23/17 10:51 of the Eye Date of admission: 11/23/17 00:30 Primary care physician: Petrona Smith Consults: 11/23/17 18:48 Consult to Surgery [CONS] Routine Consulting Provider: Surgery [facility] Reason for Consult: [facility] C. difficile colitis Call Completed: Yes 11/24/17 11:42 Consult to Infectious Diseases [CONS] Routine Consulting Provider: Infectious Disease [facility] Reason for Consult: community acquired C.Dif Call Completed: No - Constitutional Vitals: Temp Pulse Resp BP Pulse Ox 98.6 F 75 16 131/69 96 11/25/17 10:55 11/25/17 10:55 11/25/17 10:55 11/25/17 10:55 11/25/17 10:55 Exam: General: Patient is alert, oriented, no acute distress, Head: atraumatic, normocephalic, Eye: normal appearance, PERRL, no scleral icterus, no conjunctival injection ENT: mucous membranes moist, normal external ear exam Neck: normal inspection, trachea midline, full ROM, no carotid bruits Chest: normal inspection, symmetric chest rise Respiratory: Good respiratory effort. Bilateral breath sounds are clear without wheezing, crackles, or rhonchi. Cardiovascular: Regular rate and rhythm. s1 and s2 No clicks, rubs, gallops, murmors. Abdomen: BSve, mildly tender in all quadrants, no massses or organomegally found. musculoskeletal: Spontaneously moving all extremities. no edema, no calf tenderness Skin: warm, dry, intact. Neuro: Alert and oriented x4. Sensation light touch intact. Cranial nerves 2- 12 is intact. Not aphasic, Psych: Patient's affect is normal - Patient Status Disposition: Home, Self-Care Condition: Fair Functional capacity at discharge: independent ambulation Overall status at discharge: patient is progressing back to baseline - Discharge Instructions Follow Up With: Petrona Smith [Primary Care Provider] - Wing Lynn MD [Partnered Physician] - (Web request sent on 11/25.) Ethel Dawson MD [Partnered Physician] - (Web request sent on 11/25) - Diet and Activity Activity: increase activity as tolerated Diet: advance to your usual diet
--- NOTE | 2017-11-25 23:53 | Infectious Disease Consult ---
Date of Encounter: 11/26/17 Time of Encounter: 15:00 Assessment and Plan (1) Clostridium difficile colitis Status: Acute Assessment and plan: first episode moderate symptoms improved no recent antibiotics continue oral vancomycin duration of treamtent 10-14 days okay to start feeding if okay with surgery hydration monitor labs (2) Leukocytosis Status: Acute Qualifiers: Leukocytosis type: unspecified Qualified Code(s): D72.829 - Elevated white blood cell count, unspecified (3) Abdominal pain Status: Acute Assessment and plan: secondary to C diff colitis resolved Qualifiers: Abdominal location: generalized Qualified Code(s): R10.84 - Generalized abdominal pain (4) IBS (irritable bowel syndrome) Status: Chronic Qualifiers: Irritable bowel syndrome type: unspecified Qualified Code(s): K58.9 - Irritable bowel syndrome without diarrhea (5) Mood disorder Status: Chronic Infectious Disease HPI - Data of Consult Patient: new to practice Consult date: 11/25/17 Requesting Physician: Jyoti Honeycutt MD Primary Care Provider: Petrona Smith - Consult Narrative Reason for consult: C diff colitis History of present illness: Ms. Rome is a 47 year old female admitted to [facility] with Abdominal pain and colitis on 11/23, we are consulted for community acquired C diff. patient is a47 year old woman with past medical history significant for depression/anxiety, asthma, and new onset diabetes mellitus as per records. patient is apoor historian and most of the info was taken from medical records. patient tells me that she had sudden onset abdominal pain and cramping and servere diarrhea that started on November 15. She denied any fever or chills. no nsausea or vomiting no blood in the stool. Patient denies any recent antibiotics in the last 6 months. Since admission, patient has been afebrile. No tachycarida and hemodinamically stable. labs revealed elevated WBC at 13 with 74% N. and no bands. stool was sent for C diff and PCR and she was positive for C diff. A CT abdomen/pelvis revealed: 1. Severe wall thickening of the cecum and ascending colon with adjacent inflammatory stranding. Moderate wall thickening of the transverse through descending colon is also seen. Abdominal ascites is present. Findings are most compatible with severe colitis. No pneumatosis. No free air. 2. Nonvisualization of the appendix. 3. Circumferential wall thickening of the bladder. Findings can be seen in setting of cystitis. Correlate with urinalysis. 4. Status post cholecystectomy and hysterectomy. patient was initially started on cipro and flagyl and then switched to oral Vanco p[atient was also evaluated by surgery and made NPO since saturday currently patient tells me that she is hungry. has no had a bowel movement since this am and she states her stool was more formed. abdominal pain had resolved. Rest of the ROS is unremarkable. CC: Jyoti Honeycutt MD Past Med Surg Social Fam HX - Past Medical History Medical history: asthma, diabetes, hypertension Additional medical history: DDD,IBS, Reflux Psychiatric history: anxiety, depression, panic disorder, PTSD - Past Surgical History Surgical History: appendectomy, , cholecystectomy, hysterectomy - Social History Smoking Status: Current every day smoker Packs per day: 1 Pack Smokeless Tobacco Status: No Alcohol use: none Drug use: none - Family History Father Adopted: [place]: Abel Potter Age: 74 Family Member Ethnicity: Non- Living Status: Still Living Hx Family Cardiac Disorders: Yes Hx Family Cancer: Yes (Thyroid) Hx Family GI Disorders: No Hx Family Genitourinary Disorders: No Hx Family Endocrine Disorder: No Hx Family Musculoskeletal Disorders: No Hx Family Neuromuscular Disorders: No Hx Family Neurologic Disorders: No Hx Family HEENT Disorders: No Hx Family Autoimmune Disorders: No Hx Family Reproductive Disorders: No Hx Family Psychosocial Disorders: No Hx Family Medical Disorders: No Infectious Disease-CN:Meds Amlodipine Besylate 10 mg PO DAILY 11/23/17 [History] BuPROPion XL (24 HR) [Wellbutrin Xl] 300 mg PO DAILY 11/23/17 [History] Ciclesonide [Alvesco] 1 puff IH BID 11/23/17 [History] Dicyclomine [Bentyl] 10 mg PO QID 11/23/17 [History] Linaclotide [Linzess] 290 mcg PO DAILY 11/23/17 [History] Metoprolol [Lopressor] 25 mg PO BID 11/23/17 [History] Mometasone Furoate [Nasonex] 1 - 2 spr NS DAILY 11/23/17 [History] Pravastatin Sodium [Pravachol] 40 mg PO HS 11/23/17 [History] Sertraline [Zoloft] 200 mg PO QAM 11/23/17 [History] clonazePAM [Klonopin] 0.5 mg PO BID 11/23/17 [History] lamoTRIgine [Lamictal] 200 mg PO BID 11/23/17 [History] raNITIdine HCl [Zantac] 150 mg PO BID 11/23/17 [History] Lactobacillus [Culturelle] 1 each PO BID 9 Days #18 cap.sprink 11/25/17 [Rx] Vancomycin Oral Soln [Firvanq] 125 mg PO QID 9 Days #9 udc 11/25/17 [Rx] 3 Allergy/AdvReac Type Severity Reaction Status Date / Time lisinopril Allergy Swelling Verified 11/23/17 10:51 of Lip/Tongue/Throat acetaminophen [From Vicodin] AdvReac Swelling Verified 11/23/17 10:51 of the Eye hydrocodone [From Vicodin] AdvReac Swelling Verified 11/23/17 10:51 of the Eye Review of systems: 10 point ROS done, negative other for what's mentioned in the HPI Exam - Constitutional Vitals: Temp Pulse Resp BP Pulse Ox 98.6 F 75 16 131/69 96 11/25/17 10:55 11/25/17 10:55 11/25/17 10:55 11/25/17 10:55 11/25/17 10:55 General appearance: no acute distress, no febrile - ENT ENT exam: Present: mucous membranes dry - Respiratory Respiratory exam: Present: CTAB. Absent: wheezes - Cardiovascular Cardiovascular exam: Present: RRR, +S1, +S2 - GI/Abdominal GI/Abdominal exam: Present: normal bowel sounds, soft. Absent: distended, guarding, tenderness - Extremities Exam Extremities exam: Present: full ROM, normal inspection - Neurological Exam Neurological exam: Present: alert, oriented X3 Infectious Disease CN: Results - Labs CBC & Chem 7: 11/25/17 06:16 11/25/17 06:16 Serology: Serology 11/23/17 11/23/17 11/23/17 Range/Units 10:51 10:51 10:51 Stool Occult Blood Positive A (Negative) Stl C. cayetanensis PCR Not detected (Not detect) Stool Rotavirus A PCR Not detected (Not detect) Stl Adenov F 40/41 PCR Not detected (Not detect) Stool Astrovirus (PCR) Not detected (Not detect) Stool Campylobacter PCR Not detected (Not detect) Stl C. diff Tox B Gene Positive A (Negative) Stl C. diff Tox A/B PCR See reflex test A (Not detect) Stool Cryptosporidium PCR Not detected (Not detect) Stl Sh Tox Pr E STEC PCR Not detected (Not detect) Stool E coli O157 PCR Not detected (Not detect) Stl Enterotoxigenic E PCR Not detected (Not detect) Stool EPEC (PCR) Not detected (Not detect) Stool EAEC (PCR) Not detected (Not detect) Stl E. histolytica PCR Not detected (Not detect) Stool Giardia Lamblia PCR Not detected (Not detect) Stool Salmonella PCR Not detected (Not detect) Stool Sapovirus (PCR) Not detected (Not detect) Stl P. shigelloides PCR Not detected (Not detect) Stl Shigella/EIEC PCR Not detected (Not detect) St Y.enterocolitica PCR Not detected (Not detect) Stool Vibrio (PCR) Not detected (Not detect) Stl Vibrio cholerae PCR Not detected (Not detect) Stl Norovirus GI/GII PCR Not detected (Not detect) Stl GI Panel (PCR) Com See below Consult Discharge Plan - Plan Referrals: Vladimir Billings DO [Partnered Physician] - 12/10/17 2:00 pm (New PCP appointment and hospital follow up appointment. Patient currently sees a FOUNDRY MOLDER at [facility] but, requested we find her a DrSofy with [facility]. Will go over everything patient needs to bring to appointment with her. ) Wing Lynn MD [Partnered Physician] - (Web request sent on 11/25.) Ethel Dawson MD [Partnered Physician] - (Web request sent on 11/25) Prescriptions: Lactobacillus [Culturelle] 1 each PO BID 9 Days #18 cap.sprink Vancomycin Oral Soln [Firvanq] 125 mg PO QID 9 Days #9 udc
== END 2017-11-25 15:40 | disposition home or self-care (01) | DRG 372 ==
LOC: 3ANU → SUATTDRO 11-23 00:30 → 3ANU 11-23 15:21
PROVIDERS: ADMIT Student in an Organized Health Care Education/Training Program; ATTEND Internal Medicine